=== PATIENT | female | born 1945 | race Caucasian/White ===

== ENCOUNTER 2017-10-22 08:34 | Inpatient (IN) | payer MEDICARE, BC ==
[~2017-10-22 08:34] MED LIST: ceFAZolin 2 GM in Premix Bag 1 BAG IV ONE
[2017-10-22] MEDS ORDERED: Lidocaine 2% 5 ML SDV ONE (08:50)
[2017-10-22] MEDS ORDERED: Propofol 200 MG/20 ML SDV ONE (08:50)
[2017-10-22] MEDS ORDERED: fentaNYL 250 MCG/5 ML SDV ONE (08:51)
[2017-10-22] MEDS ORDERED: Midazolam 1 MG/ML 2 ML SDV ONE (08:51)
[2017-10-22] MEDS ORDERED: Sugammadex Sodium 200 MG/2 ML VIAL ONE (08:52)
[2017-10-22] MEDS ORDERED: Rocuronium 10 MG/ML 10 ML Syringe ONE (08:52)
[2017-10-22] MEDS ORDERED: ePHEDrine 50 MG/ML SDV ONE ×2 (08:52→13:14)
[2017-10-22] MEDS ORDERED: Ondansetron 4 MG/2 ML SDV ONE (08:52)
[2017-10-22] MEDS ORDERED: ceFAZolin/Dextrose,Iso-Osmotic 2 GM/50 ML Duplex Bag IV ONE (08:58)
--- NOTE | 2017-10-22 09:24 | PCM.PREANE ---
Preanesthetic Assessment - Anesthesia/Transfusion/Family Hx Anesthesia History: Prior Anesthesia Without Reaction Family History of Anesthesia Reaction: No Transfusion History: No Prior Transfusion(s) Intubation History: Unknown - Review of Systems General: No Symptoms Pulmonary: No Symptoms Cardiovascular: No Symptoms Gastrointestinal: No Symptoms Neurological: No Symptoms Other: Reports: None - Physical Assessment Height: 1.6 m Weight: 72.575 kg ASA Class: 2 Mental Status: Alert & Oriented x3 Airway Class: Mallampati = 2 Dentition: Reports: Harper(s) (multiple crowns) Thyro-Mental Finger Breadths: 3 Mouth Opening Finger Breadths: 2 ROM/Head Extension: Full Lungs: Clear to Auscultation, Normal Respiratory Effort Cardiovascular: Regular Rate, Regular Rhythm - Allergies Allergies/Adverse Reactions: Allergies Allergy/AdvReac Type Severity Reaction Status Date / Time No Known Allergies Allergy Verified 10/20/17 12:17 - Blood Blood Available: No - Anesthesia Plan Pre-Op Medication Ordered: None - Acknowledgements Anesthesia Type Planned: Spinal (plus general anesthesia ) Pt an Appropriate Candidate for the Planned Anesthesia: Yes Alternatives and Risks of Anesthesia Discussed w Pt/Guardian: Yes Pt/Guardian Understands and Agrees with Anesthesia Plan: Yes PreAnesthesia Questionnaire HEENT History: Reports: Allergic Rhinitis Other HEENT History: wears glasses Cardiovascular History: Reports: Blood Clots/VTE/DVT, High Cholesterol (mildly elevated cholesterol), Hypertension Other Cardiovascular History: had DVT in left leg when on BCP's - took heparin Genitourinary History: Reports: Urinary Incontinence 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: Musculoskeletal History: Reports: Arthritis, Back Pain, Chronic, Fracture Other Musculoskeletal History: hx of fx left ankle Endocrine/Metabolic History: Reports: Hypothyroidism - Past Surgical History Head Surgeries/Procedures: Reports: None HEENT Surgical History: Reports: None GI Surgical History: Reports: Appendectomy, Colonoscopy Endocrine Surgical History: Reports: Thyroidectomy Musculoskeletal Surgical History: Reports: Knee Replacement (right) - SUBSTANCE USE Smoking Status *Q: Never Smoker Recreational Drug Use History: No - HOME MEDS Home Medications: Home Meds Aspirin 81 mg PO DAILY 01/27/15 [History] Levothyroxine 125 mcg PO DAILY 01/27/15 [History] Moexipril [Univasc] 15 mg PO DAILY 01/27/15 [History] Multivitamins 1 cap PO DAILY 01/27/15 [History] traMADol [Ultram] 50 mg PO Q4H PRN 10/20/17 [History] - CURRENT (IN HOUSE) MEDS Current Meds: Current Medications Lactated Ringer's (Ringers, Lactated) 1,000 mls @ 125 mls/hr IV ASDIRECTED JOSE Tranexamic Acid (Cyklokapron) 2,000 mg IV ONETIME ONE Stop: 10/22/17 10:01 Discontinued Medications Cefazolin Sodium/Dextrose (Ancef) Confirm Administered Dose 2 gm IV .STK-MED ONE Stop: 10/22/17 08:59 Ephedrine Sulfate (Ephedrine Sulfate) Confirm Administered Dose 50 mg .ROUTE .STK-MED ONE Stop: 10/22/17 08:53 Fentanyl (Sublimaze) Confirm Administered Dose 250 mcg .ROUTE .STK-MED ONE Stop: 10/22/17 08:52 Cefazolin Sodium/Dextrose 2 gm (/ Premix) 50 mls @ 50 mls/hr IV ONETIME ONE Stop: 10/22/17 08:05 Lidocaine (Xylocaine-Mpf 2%) Confirm Administered Dose 10 ml .ROUTE .STK-MED ONE Stop: 10/22/17 08:51 Midazolam HCl (Versed 1 Mg/Ml) Confirm Administered Dose 2 mg .ROUTE .STK-MED ONE Stop: 10/22/17 08:52 Ondansetron HCl (Zofran) Confirm Administered Dose 4 mg .ROUTE .STK-MED ONE Stop: 10/22/17 08:53 Propofol (Diprivan 20 Ml) Confirm Administered Dose 400 mg .ROUTE .STK-MED ONE Stop: 10/22/17 08:51 Rocuronium [place] (Zemuron) Confirm Administered Dose 100 mg .ROUTE .STK-MED ONE Stop: 10/22/17 08:53 Sugammadex Sodium (Bridion) Confirm Administered Dose 200 mg .ROUTE .STK-MED ONE Stop: 10/22/17 08:53 Tranexamic Acid (Cyklokapron) Confirm Administered Dose 2,000 mg .ROUTE .STK- MED ONE Stop: 10/22/17 07:25
[2017-10-22] MEDS: Lactated Ringers 1,000 ML IV SCH ×3 (09:45→21:50)
[2017-10-22] MEDS ORDERED: Dermabond Prineo 1 Tube TOP ONE (11:07)
[2017-10-22] MEDS ORDERED: Phenylephrine/Normal Saline 100 MCG/ML 10 ML Syringe ONE (11:18)
[2017-10-22] MEDS ORDERED: fentaNYL 100 MCG/2 ML SDV IVPUSH PRN (11:21)
--- NOTE | 2017-10-22 12:07 | PCM.OPNOTE ---
- General Post-Op/Procedure Note Date of Surgery/Procedure: 10/22/17 Operative Procedure(s): right anterior total hip arthroplasty Findings: severe OA Pre Op Diagnosis: right hip osteoarthritis Post-Op Diagnosis: same Anesthesia Technique: General ET Tube, Spinal Primary Surgeon: Jose G Saldivar Mai Project Reservoir Engineer: Patricia Awan Pathology: femoral head EBL in mLs: 400 Complications: none Condition: Good Free Text/Narrative:: Intake & Output 10/21/17 10/22/17 10/22/17 22:59 06:59 14:59 Intake Total 300 Balance 300
[2017-10-22] MEDS ORDERED: Ondansetron 4 MG/2 ML SDV IV PRN (12:19)
[2017-10-22] MEDS ORDERED: traMADol 50 MG Tab PO PRN (12:20)
[2017-10-22] MEDS: Acetaminophen/HYDROcodone 325-5 MG Tab PO PRN ×2 (13:52→20:17)
[2017-10-22] MEDS: HYDROmorphone 1 MG/ML Syringe IVPUSH PRN ×2 (14:00→17:07)
--- NOTE | 2017-10-22 16:08 | OR ---
SURGEON: Jose G Cooper MD DATE OF PROCEDURE: 10/22/2017 EQUIPMENT SPECIALIST: Patricia Awan PA-C. PREOPERATIVE DIAGNOSIS: Right hip osteoarthritis. POSTOPERATIVE DIAGNOSIS: Right hip osteoarthritis. OPERATION PERFORMED: Right anterior total hip arthroplasty. ANESTHESIA: Spinal and general. COMPLICATION: None. ESTIMATED BLOOD LOSS: 400 mL. SPECIMENS: Femoral head. IMPLANTS: Aquiles Continuum trabecular metal shell with cluster holes, 52 mm outer diameter, three 6.5 mm bone screws, 130 x 20; Vivacit-E neutral liner, 36 mm inner diameter. M/L taper press-fit stem, size 12.5 standard offset, Biolox delta ceramic head, 36 mm diameter, -3.5 neck length. INDICATIONS: The patient is a 72-year-old female with severe arthritis, she wished to undergo hip replacement. She understands the risks, benefits, complications of procedure including but not limited to infection, neurovascular injury, continued pain, DVT, PE, stroke, DC, , leg-length discrepancy, fracture, dislocation, and she wished to proceed. DESCRIPTION OF PROCEDURE: The patient was seen in the preoperative area. Operative site was marked. She was transferred to the operating room. Spinal anesthetic was given. She was placed supine on the Hernandez table. General anesthesia was induced. Endotracheal tube was placed. She received preop antibiotic, Ancef, and 2 g of TXA. The legs were placed in the leg bars with narrow perineal post. Right hip was prepped and draped in sterile fashion alcohol followed by ChloraPrep. A formal time-out was taken, identifying the correct patient, procedure, and extremity. A 10 cm incision starting just lateral to the ASIS going obliquely down to the femur was made. Dissection was carried down to subcu tissues. Hemostasis was obtained. The fascia overlying the TFL lateral to the lateral femoral cutaneous nerve and the interval between sartorius and TFL, deep between abductors and rectus was opened. The vastus lateralis fascia was opened, then anterior vessels were coagulated. The capsule was held and tagged with two FiberWires after placing deep Ramakrishna retractor. The neck was cut from saddle region 1 cm above the lesser trochanter and the head was removed. There was severe arthritis and remnants of the labrum. Pulvinars were removed and the inferior capsule was released preserving the iliopsoas tendon. The head measured about 47 sequentially reamed from 47 to 51 mm was made going slightly superior medial to get good fit and fill. This was under fluoroscopic control. The bed was planed to make sure it was level under fluoroscopic control. Then, continuum trabecular metal shell with cluster holes was placed in 45 degrees of abduction, 10 degrees of anteversion, this had decent press fit. Therefore, three bone screws were placed after drilling 130 x 20. Wound was then irrigated out and neutral liner was impacted. Leg was then externally rotated, abducted, and extended after placing the femoral lift. The superior capsule, obturator internus, and piriformis were released and the central canal finer was utilized, it was sequentially broached following the [place] version from size 4 to 12.5. There was an excellent fit and fill. The hip was trial reduced with a standard offset with zero neck length. Printed overlay technique showed leg lengths to be essentially equal, maybe 1 to 2 mm increased offset head. The hip was then dislocated. The final 12.5 standard offset stem was impacted. It sat slightly proud, therefore -3.5 head was impacted, it was reduced in the printed overlay technique, showed maybe 1 to 2 mm long with equal offset. The wound was then thoroughly irrigated. Two tag sutures were tied together. The fascia was closed with #1 Vicryl. Subcu tissues with 2-0 StrataFix. Skin with running 4-0 Monocryl. Dermabond tape and sterile dressing were applied. The patient was extubated in operating room and transferred to recovery room in stable condition. Sponge and needle counts were correct at the end of the case. There were no complications. Take aspirin for DVT prophylaxis. DIANA HEMPHILL /[id number]
--- NOTE | 2017-10-22 16:21 | CR ---
EXAMINATION: Right hip HISTORY: Arthroplasty COMPARISON: Radiographs dated 10/20/2017 TECHNIQUE: 3 images provided FINDINGS/IMPRESSION: Operative control films demonstrate right total hip hardware in good position an d alignment.
[2017-10-22] MEDS: ceFAZolin 1 GM in Premix Bag 1 BAG IV SCH (18:03)
[2017-10-22] MEDS: Docusate Sodium 100 MG Cap PO SCH (20:19)
[2017-10-23] MEDS: HYDROmorphone 1 MG/ML Syringe IVPUSH PRN ×2 (00:48→06:14)
[2017-10-23] MEDS: ceFAZolin 1 GM in Premix Bag 1 BAG IV SCH (02:29)
[2017-10-23] MEDS: Acetaminophen/HYDROcodone 325-5 MG Tab PO PRN ×3 (02:32→20:07)
[2017-10-23] MEDS: Lactated Ringers 1,000 ML IV SCH (06:21)
[2017-10-23] MEDS: Levothyroxine 125 MCG Tab PO SCH (06:37)
[2017-10-23] MEDS ORDERED: Sodium Chloride 0.9% 2.5 ML Syringe FLUSH PRN (06:53)
[2017-10-23] MEDS ORDERED: Sodium Chloride 0.9% 10 ML Syringe FLUSH PRN (06:53)
--- NOTE | 2017-10-23 06:55 | PCM.SN ---
- Free Text/Narrative Note: Subjective: Patient is overall doing very well she complains of itchiness in the low back and bilateral thigh knee leg pain. Overall the hip is doing well. She is tolerating by mouth well. She has been out of bed to chair several times. She has not worked with therapy yet. No other complaints. Objective: Afebrile, vital signs stable Right hip reveals dressing to be clean/dry/intact with no signs of erythema or drainage. She has minimal if any swelling in the thigh and none distally. She has normal sensation and motor distally with palpable dorsalis pedis pulse Hemoglobin 12.7 Assessment/plan: Postoperative day #1 right hip replacement - Weight bearing as tolerated with physical therapy and walker - Ecotrin and SCDs for DVT prophylaxis - DC Tate and saline lock IV today - Disposition to home when able. This may be today.
--- NOTE | 2017-10-23 07:02 | PCM48HPAN ---
Post Anesthesia Note - EVALUATION WITHIN 48HRS OF ANESTHETIC Vital Signs in Normal Range: Yes Patient Participated in Evaluation: Yes Respiratory Function Stable: Yes Airway Patent: Yes Cardiovascular Function Stable: Yes Hydration Status Stable: Yes Pain Control Satisfactory: Yes Nausea and Vomiting Control Satisfactory: Yes Mental Status Recovered: Yes Resp Rate: 19
[2017-10-23] MEDS: Docusate Sodium 100 MG Cap PO SCH ×2 (08:45→20:08)
[2017-10-23] MEDS: Multivitamins with Iron/Calcium/Folic Acid/Minerals Tab PO SCH (08:46)
[2017-10-23] MEDS: Celecoxib 100 MG Cap PO SCH (08:46)
[2017-10-23] MEDS: Aspirin 325 MG Tab.EC PO SCH ×2 (08:49→20:07)
[2017-10-24] MEDS: Levothyroxine 125 MCG Tab PO SCH (06:45)
--- NOTE | 2017-10-24 06:54 | PCM.SN ---
- Free Text/Narrative Note: Subjective: Patient is overall doing well. She is ambulating. Her pain is better controlled and she is tolerating by mouth. Overall her legs feel stiff. Objective: Afebrile, vital signs stable Dressing clean/dry/intact on right thigh. Mild swelling and thigh but none distally. There is no erythema or signs of infection. Full sensation and motor distally with palpable pulses Hemoglobin 11.9 Assessment/plan: Postoperative day #2 right hip replacement - Weight bearing as tolerated with physical therapy - Ecotrin SCDs for DVT prophylaxis - Her hemoglobin is stable - To home today with walker
--- NOTE | 2017-10-24 06:55 | PCM.DCSUM1 ---
Discharge Summary - Hospital Course Brief History: Patient is admitted for elective right hip replacement Diagnosis: Stroke: No - Discharge Data Discharge Date: 10/24/17 Discharge Disposition: Home, Self-Care 01 Condition: Good - Patient Summary/Data Operative Procedure(s) Performed: right anterior total hip arthroplasty Consults: Consultations 10/22/17 12:18 PT Evaluation and Treatment [CONS] Routine Hospital Course: Patient was admitted and underwent uneventful total hip arthroplasty. Postoperatively she was admitted for her pain was controlled and her diet was advanced and she participated in physical therapy with weightbearing as tolerated. She did well postoperatively and was subsequently discharged home on postoperative day #2 - Patient Instructions Diet: Usual Diet as Tolerated Activity: Apply Ice, Full Weight Bearing Driving: Do Not Drive Showering/Bathing: August Shower Wound/Incision Care: Do NOT Change Dressing Notify Provider of: Fever, Swelling and Redness, Drainage - Discharge Plan Home Medications: Home Meds Aspirin 81 mg PO DAILY 01/27/15 [History] Levothyroxine 125 mcg PO DAILY 01/27/15 [History] Moexipril [Univasc] 15 mg PO DAILY 01/27/15 [History] Multivitamins 1 cap PO DAILY 01/27/15 [History] traMADol [Ultram] 50 mg PO Q4H PRN 10/20/17 [History] Patient Handouts: Acetaminophen; Hydrocodone tablets or capsules, Aspirin, ASA oral tablets Referrals: Patricia Awan PA [[facility]] - 11/05/17 3:20 pm - Discharge Summary/Plan Comment DC Time >30 min.: No - Patient Data Vitals - Most Recent: Last Vital Signs Temp 36.9 C 10/24/17 04:00 Pulse 94 10/24/17 04:00 Resp 18 10/24/17 04:00 BP 105/60 10/24/17 04:00 Pulse Ox 97 10/24/17 04:00 Weight - Most Recent: 72.575 kg I&O - Last 24 hours: Intake & Output 10/23/17 10/23/17 10/24/17 14:59 22:59 06:59 Intake Total 300 Output Total 1250 Balance -950 Lab Results - Last 24 hrs: Laboratory Results - last 24 hr 10/24/17 Range/Units 04:36 Hgb 11.9 L (12.0-16.0) g/dL Hct 36.1 (36.0-46.0) % Med Orders - Current: Current Medications Hydrocodone Bitart/Acetaminophen (Keller 325-5 Mg) 1 - 2 tab PO Q4H PRN PRN Reason: Pain Last Admin: 10/23/17 20:07 Dose: 2 tab Aspirin (Ecotrin) 325 mg PO BID [facility] Last Admin: 10/23/17 20:07 Dose: 325 mg Celecoxib (Celebrex) 200 mg PO DAILY [facility] Last Admin: 10/23/17 08:46 Dose: 200 mg Docusate Sodium (Colace) 100 mg PO BID [facility] Last Admin: 10/23/17 20:08 Dose: 100 mg Hydromorphone HCl (Dilaudid) 0.5 - 1 mg IVPUSH Q3H PRN PRN Reason: Pain Last Admin: 10/23/17 06:14 Dose: 1 mg Lactated Ringer's (Ringers, Lactated) 1,000 mls @ 125 mls/hr IV ASDIRECTED [facility] Last Admin: 10/23/17 06:21 Dose: 125 mls/hr Levothyroxine Sodium (Levothyroxine) 125 mcg PO ACBREAKFAST [facility] Last Admin: 10/24/17 06:45 Dose: 125 mcg Moexipril HCl (Univasc) 15 mg PO DAILY [facility] Last Admin: 10/23/17 08:46 Dose: 15 mg Multivitamins/Minerals (Thera M Plus) 1 tab PO DAILY [facility] Last Admin: 10/23/17 08:46 Dose: 1 tab Ondansetron HCl (Zofran) 4 mg IV Q6HR PRN PRN Reason: NAUSEA/VOMITING Sodium Chloride (Saline Flush) 10 ml FLUSH ASDIRECTED PRN PRN Reason: Keep Vein Open Sodium Chloride (Saline Flush) 2.5 ml FLUSH ASDIRECTED PRN PRN Reason: Keep Vein Open Tramadol HCl (Ultram) 50 - 100 mg PO Q6H PRN PRN Reason: Pain Discontinued Medications Cefazolin Sodium/Dextrose (Ancef) Confirm Administered Dose 2 gm IV .STK-MED ONE Stop: 10/22/17 08:59 Ephedrine Sulfate (Ephedrine Sulfate) Confirm Administered Dose 50 mg .ROUTE .STK-MED ONE Stop: 10/22/17 08:53 Ephedrine Sulfate (Ephedrine Sulfate) Confirm Administered Dose 50 mg .ROUTE .STK-MED ONE Stop: 10/22/17 13:15 Fentanyl (Sublimaze) Confirm Administered Dose 250 mcg .ROUTE .STK-MED ONE Stop: 10/22/17 08:52 Fentanyl (Sublimaze) 50 mcg IVPUSH Q5M PRN PRN Reason: Pain (severe 7-10) Stop: 10/23/17 11:21 Cefazolin Sodium/Dextrose 2 gm (/ Premix) 50 mls @ 50 mls/hr IV ONETIME ONE Stop: 10/22/17 08:05 Last Admin: 10/22/17 16:36 Dose: Not Given Cefazolin Sodium/Dextrose 1 gm (/ Premix) 50 mls @ 100 mls/hr IV Q8H JOSE Stop: 10/23/17 02:59 Last Admin: 10/23/17 02:29 Dose: 100 mls/hr Lidocaine (Xylocaine-Mpf 2%) Confirm Administered Dose 10 ml .ROUTE .STK-MED ONE Stop: 10/22/17 08:51 Midazolam HCl (Versed 1 Mg/Ml) Confirm Administered Dose 2 mg .ROUTE .STK-MED ONE Stop: 10/22/17 08:52 Octyl Cyanoacrylate (Dermabond Prineo) 1 applic TOP .STK-MED ONE Stop: 10/22/17 11:08 Ondansetron HCl (Zofran) Confirm Administered Dose 4 mg .ROUTE .STK-MED ONE Stop: 10/22/17 08:53 Phenylephrine HCl (Phenylephrine In Ns 100 Mcg/Ml) Confirm Administered Dose 1 mg .ROUTE .STK-MED ONE Stop: 10/22/17 11:19 Propofol (Diprivan 20 Ml) Confirm Administered Dose 400 mg .ROUTE .STK-MED ONE Stop: 10/22/17 08:51 Rocuronium [place] (Zemuron) Confirm Administered Dose 100 mg .ROUTE .STK-MED ONE Stop: 10/22/17 08:53 Sugammadex Sodium (Bridion) Confirm Administered Dose 200 mg .ROUTE .STK-MED ONE Stop: 10/22/17 08:53 Tranexamic Acid (Cyklokapron) 2,000 mg IV ONETIME ONE Stop: 10/22/17 10:01 Last Admin: 10/22/17 17:55 Dose: Not Given Tranexamic Acid (Cyklokapron) Confirm Administered Dose 2,000 mg .ROUTE .[facility] ONE Stop: 10/22/17 07:25
[2017-10-24] MEDS: Multivitamins with Iron/Calcium/Folic Acid/Minerals Tab PO SCH (09:13)
[2017-10-24] MEDS: Docusate Sodium 100 MG Cap PO SCH (09:13)
[2017-10-24] MEDS: Celecoxib 100 MG Cap PO SCH (09:14)
[2017-10-24] MEDS: Aspirin 325 MG Tab.EC PO SCH (09:14)
[2017-10-24 11:50] VITALS: BP 101/59
[2017-10-24] MEDS: Acetaminophen/HYDROcodone 325-5 MG Tab PO PRN (15:24)
== END 2017-10-24 14:30 | disposition home or self-care (01) | DRG 470 ==
LOC: MW.MS 08:34
PROVIDERS: ADMIT Orthopaedic Surgery; ATTEND Orthopaedic Surgery
PROC: 0SR90JA Replacement of Right Hip Joint with Synthetic Substitute, Uncemented, Open Approach (ICD-10-PCS; principal; 2017-10-22)
DX: M16.11 Unilateral primary osteoarthritis, right hip (principal); I10 Essential (primary) hypertension; E03.9 Hypothyroidism, unspecified; E78.00 Pure hypercholesterolemia, unspecified; Z86.718 Personal history of other venous thrombosis and embolism; Z96.651 Presence of right artificial knee joint; Z79.899 Other long term (current) drug therapy; Z91.81 History of falling; Z79.82 Long term (current) use of aspirin
CPT/HCPCS: 36415; 76000; 76000-26; 85014; 85018; 86850; 86900; 86901; 88304; 88311; 97110-GP; 97161-GP; 97530-GP; A9270-GY; C1713; C1776; J0690; J1170; J2250; J2405; J2704; J3010; J3490; J7120

== ENCOUNTER 2018-07-20 10:07 | Day surgery (SDC) | payer MEDICARE, BC ==
[~2018-07-20 10:07] MED LIST changes: +Lactated Ringers 1,000 ML IV SCH; -ceFAZolin 2 GM in Premix Bag 1 BAG IV ONE
--- NOTE | 2018-07-20 11:23 | PCM.PREANE ---
Preanesthetic Assessment - Anesthesia/Transfusion/Family Hx Anesthesia History: Prior Anesthesia Without Reaction Family History of Anesthesia Reaction: No Transfusion History: No Prior Transfusion(s) Intubation History: Unknown - Review of Systems General: No Symptoms Pulmonary: No Symptoms Cardiovascular: No Symptoms Gastrointestinal: Abdominal Pain, Constipation, Diarrhea, Hematochezia Neurological: No Symptoms Other: Reports: None - Physical Assessment Height: 1.6 m Weight: 75.75 kg ASA Class: 3 Mental Status: Alert & Oriented x3 Airway Class: Mallampati = 2 Dentition: Reports: [place](s) (multiole upper front) Thyro-Mental Finger Breadths: 3 Mouth Opening Finger Breadths: 2 ROM/Head Extension: Limited/Partial Lungs: Clear to Auscultation, Normal Respiratory Effort Cardiovascular: Regular Rate, Regular Rhythm - Allergies Allergies/Adverse Reactions: Allergies Allergy/AdvReac Type Severity Reaction Status Date / Time No Known Allergies Allergy Verified 07/15/18 07:31 - Blood Blood Available: No - Anesthesia Plan Pre-Op Medication Ordered: None - Acknowledgements Anesthesia Type Planned: MAC Pt an Appropriate Candidate for the Planned Anesthesia: Yes Alternatives and Risks of Anesthesia Discussed w Pt/Guardian: Yes Pt/Guardian Understands and Agrees with Anesthesia Plan: Yes PreAnesthesia Questionnaire HEENT History: Reports: Allergic Rhinitis, Other (See Below) Other HEENT History: wears glasses Cardiovascular History: Reports: Blood Clots/VTE/DVT, High Cholesterol (mildly elevated), Hypertension Other Cardiovascular History: had DVT in left leg when on BCP's and when with son, states left leg remains slightly swollen and wears compression socks Respiratory History: Reports: None Gastrointestinal History: Reports: Chronic Diarrhea Genitourinary History: Reports: None 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: Musculoskeletal History: Reports: Arthritis, Back Pain, Chronic, Fracture Other Musculoskeletal History: hx of fx left ankle Neurological History: Reports: None Psychiatric History: Reports: None Endocrine/Metabolic History: Reports: Hypothyroidism Hematologic History: Reports: None Immunologic History: Reports: None Oncologic (Cancer) History: Reports: None Dermatologic History: Reports: None - Past Surgical History Head Surgeries/Procedures: Reports: None HEENT Surgical History: Reports: None Respiratory Surgical History: Reports: None GI Surgical History: Reports: Appendectomy, Colonoscopy (long time ago, like 20 years ago) Female Surgical History: Reports: None Endocrine Surgical History: Reports: Thyroidectomy Neurological Surgical History: Reports: None Musculoskeletal Surgical History: Reports: Hip Replacement (right), Knee Replacement (right) Other Musculoskeletal Surgeries/Procedures:: right knee replacement, rt hip replacement Oncologic Surgical History: Reports: None Dermatological Surgical History: Reports: None - SUBSTANCE USE Smoking Status *Q: Never Smoker Recreational Drug Use History: No - HOME MEDS Home Medications: Home Meds Aspirin 81 mg PO DAILY 01/27/15 [History] Levothyroxine 125 mcg PO DAILY 01/27/15 [History] Moexipril [Univasc] 15 mg PO DAILY 01/27/15 [History] Acetaminophen [Tylenol] 1 - 2 tab PO ASDIRECTED PRN 07/15/18 [History] Ciprofloxacin [Ciprofloxacin HCl] 500 mg PO BID 07/15/18 [History] Multivits-Min/Iron/FA/Lutein [Centrum Silver Women Tablet] 1 tab PO DAILY [History] metroNIDAZOLE 250 mg PO TID 07/15/18 [History] - CURRENT (IN HOUSE) MEDS Current Meds: Current Medications Lactated Ringer's (Ringers, Lactated) 1,000 mls @ 125 mls/hr IV ASDIRECTED JOSE
[2018-07-20] MEDS ORDERED: Midazolam 1 MG/ML 2 ML SDV ONE (12:40)
[2018-07-20] MEDS ORDERED: Lidocaine 2% 5 ML SDV ONE (12:40)
[2018-07-20] MEDS ORDERED: fentaNYL 100 MCG/2 ML SDV ONE (12:40)
[2018-07-20] MEDS ORDERED: Propofol 200 MG/20 ML SDV ONE ×4 (12:41→13:34)
[2018-07-20] MEDS ORDERED: cefOXitin 1 GM Vial ONE ×2 (13:03)
[2018-07-20] MEDS ORDERED: Phenylephrine/Normal Saline 100 MCG/ML 10 ML Syringe ONE (13:29)
--- NOTE | 2018-07-20 13:53 | PCM.OPNOTE ---
- General Post-Op/Procedure Note Date of Surgery/Procedure: 07/20/18 Operative Procedure(s): Colonoscopy with cecal, ascending colon, transverse colon, descending colon, sigmoid and rectal biopsies. Findings: Complete denuding of the entire colonic mucosa Pre Op Diagnosis: Rectal bleeding, change in bowel habits, decreased stool caliber, unexplained weight loss. Post-Op Diagnosis: Severe acute white colonic colitis. Anesthesia Technique: MAC (ASA III) Primary Surgeon: Cody Birmingham Condition: Good Free Text/Narrative:: DICTATION [id number] CPT CODE 43355
[2018-07-20] MEDS ORDERED: Lactated Ringers 1,000 ML IV SCH (14:00)
--- NOTE | 2018-07-20 14:16 | PCM.POSTAN ---
POST ANESTHESIA ASSESSMENT - MENTAL STATUS Mental Status: Alert, Oriented - VITAL SIGNS Pulse Rate: 90 SaO2: 96 Resp Rate: 10 Blood Pressure: 100/53 - RESPIRATORY Respiratory Status: Respiratory Rate WNL, Airway Patent, O2 Saturation Stable - CARDIOVASCULAR CV Status: Pulse Rate WNL, Blood Pressure Stable - GASTROINTESTINAL GI Status: No Symptoms - PAIN Pain Score: 0 - POST OP HYDRATION Hydration Status: Adequate & Stable
[2018-07-20 14:58] VITALS: BP 100/53
--- NOTE | 2018-07-20 14:58 | PCM48HPAN ---
Post Anesthesia Note - EVALUATION WITHIN 48HRS OF ANESTHETIC Vital Signs in Normal Range: Yes Patient Participated in Evaluation: Yes Respiratory Function Stable: Yes Airway Patent: Yes Cardiovascular Function Stable: Yes Hydration Status Stable: Yes Pain Control Satisfactory: Yes Nausea and Vomiting Control Satisfactory: Yes Mental Status Recovered: Yes Pulse Rate: 90 Resp Rate: 16 Blood Pressure: 100/53 - COMMENTS/OBSERVATIONS Free Text/Narrative:: no anesthesia problems
--- NOTE | 2018-07-20 20:22 | OR ---
SURGEON: Cody Birmingham M.D. DATE OF PROCEDURE: 07/20/2018 OPERATIONS PERFORMED: Colonoscopy with biopsies from the cecum, ascending colon, transverse colon, descending colon, sigmoid colon, and rectum. PRIMARY SURGEON: Cody Birmingham M.D. ANESTHESIA: MAC. ASA CLASSIFICATION: III. PREOPERATIVE DIAGNOSIS: Rectal bleeding with change in bowel habits, decreased stool caliber and weight loss. POSTOPERATIVE DIAGNOSIS: Severe pancolonic diffuse colitis. DESCRIPTION OF PROCEDURE: The patient was taken to the endoscopy room and positioned on the endoscopy table in the left lateral decubitus position. Time-out was called for appropriate identification of the patient and procedure. Monitored anesthesia care was provided. The colonoscope was inserted into the rectum and immediately she was noted to have a very acute colitis with almost complete denudation of the colonic mucosa. This pattern continued all the way to the cecum. The colonoscope was advanced very carefully and gingerly to the cecum, which was identified by internal landmarks and external pressure. The appendiceal orifice was identified. The cecum itself shows a very severe acute inflammatory process with essentially no normal appearing colonic mucosa. The initial set of biopsies was taken from the cecum. The colonoscope was retroflexed in the cecum to visualize the ascending colon from below and then straightened and slowly withdrawn. More biopsies were taken from the ascending colon. The colonoscope was slowly withdrawn and biopsies further obtained from the transverse colon, descending colon, sigmoid colon, and rectum. Essentially, there was complete denuding of the colonic mucosa through the entire length of the colon. I did not see any polyps and there were no tumors or strictures. Once the colonoscope was withdrawn to the rectum and the rectum biopsied, the colonoscope was retroflexed to visualize the anal orifice from above. No acute hemorrhoidal changes are noted, but again is noted is very aggressive appearing colitis. The colonoscope was then straightened, the rectum aspirated, and the colonoscope removed. The patient did tolerate the procedure well and was taken to recovery room in stable condition. KIN / JOBY /[id number]
== END 2018-07-20 15:00 | disposition home or self-care (01) ==
LOC: MW.SDS 10:07
PROVIDERS: ATTEND Surgery
DX: K52.9 Noninfective gastroenteritis and colitis, unspecified (principal); I10 Essential (primary) hypertension; E78.00 Pure hypercholesterolemia, unspecified; E03.9 Hypothyroidism, unspecified; Z79.82 Long term (current) use of aspirin; Z79.899 Other long term (current) drug therapy; Z79.890 Hormone replacement therapy
CPT/HCPCS: 45380; 88305; J0694; J2001; J2250; J2370; J2704; J3010; J7120; 00811

== ENCOUNTER 2019-02-03 23:20 | Emergency (ER) | payer MEDICARE, BC ==
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
[2019-02-03] MEDS ORDERED: traMADol 50 MG Tab PO ONE (23:36)
--- NOTE | 2019-02-03 23:51 | CR ---
INDICATION: Injury to chest wall TECHNIQUE: Chest radiograph 2 views COMPARISON: 09/30/17 FINDINGS: Mediastinum: The mediastinum is normal in appearance. The heart silhouette is normal in size and morphology. Lung: Both lungs are unremarkable in appearance. No sign of pleural effusion seen. No pneumothorax is identified. Bone and Soft tissue: Unremarkable for age. IMPRESSION: 1. No acute cardiopulmonary disease is seen. Dictated by: Blade Tong MD @ 02/03/2019 23:49:56 (Electronically Signed)
[2019-02-04 00:09] VITALS: BP 149/76; PULSE 68
== END 2019-02-04 00:08 | disposition home or self-care (01) ==
LOC: MW.ED 23:20
DX: R07.89 Other chest pain (principal); I10 Essential (primary) hypertension; E03.9 Hypothyroidism, unspecified; E78.00 Pure hypercholesterolemia, unspecified; Z79.82 Long term (current) use of aspirin; Z79.899 Other long term (current) drug therapy; Z86.718 Personal history of other venous thrombosis and embolism
CPT/HCPCS: 71046; 93005; 99285; A9270

== ENCOUNTER 2021-07-20 22:50 | Observation (INO) | payer MEDICARE, OTHER ==
[2021-07-21] MEDS ORDERED: Morphine 4 MG/ML VIAL IVPUSH ONE ×2 (00:13→02:37)
[2021-07-21] MEDS ORDERED: Sodium Chloride 0.9% 500 ML IV SCH (00:15)
[2021-07-21] MEDS ORDERED: Iopamidol 755 MG/ML 500 ML Multipack Bottle IVPUSH ONE (01:10)
[2021-07-21 01:12] LABS: BLOOD UREA NITROGEN,BUN 17 mg/dL (7.0-18.0); CARBON DIOXIDE,CO2 26.9 mmol/L (21.0-32.0); CHLORIDE,CL 104 mmol/L (98-107); GLUCOSE RANDOM 137 mg/dL (74-106); LIPASE 218 U/L (73-393); SODIUM,NA 141 mmol/L (136-145)
[2021-07-21] MEDS ORDERED: Morphine 4 MG/ML VIAL IVPUSH PRN (02:41)
[2021-07-21] MEDS ORDERED: Lactated Ringers 1,000 ML IV STA (02:43)
[2021-07-21] MEDS ORDERED: Morphine 2 MG/ML SYRINGE IVPUSH PRN (09:47)
[2021-07-21 16:01] VITALS: BP 138/82; PULSE 83
== END 2021-07-21 14:50 | disposition home or self-care (01) ==
LOC: MW.ED 22:50 → MW.MS 07-21 02:38
PROVIDERS: ADMIT Surgery; ATTEND Surgery
DX: K43.0 Incisional hernia with obstruction, without gangrene (principal); K40.90 Unilateral inguinal hernia, without obstruction or gangrene, not specified as recurrent; K56.609 Unspecified intestinal obstruction, unspecified as to partial versus complete obstruction; E78.00 Pure hypercholesterolemia, unspecified; I10 Essential (primary) hypertension; E03.9 Hypothyroidism, unspecified; Z86.718 Personal history of other venous thrombosis and embolism; Z79.890 Hormone replacement therapy; Z79.82 Long term (current) use of aspirin; Z79.899 Other long term (current) drug therapy; Z20.822 Contact with and (suspected) exposure to COVID-19
CPT/HCPCS: 36415; 74177; 80053; 81003; 83605; 83690; 85025; 96374; 96376; 99285; G0378; J2270; J7040; J7120; Q9967; U0002

== ENCOUNTER 2023-01-12 05:11 | Emergency (ER) | payer MEDICARE, OTHER ==
[2023-01-12] MEDS ORDERED: Sodium Chloride 0.9% 10 ML Syringe FLUSH PRN (05:19)
[2023-01-12] MEDS ORDERED: Sodium Chloride 0.9% 2.5 ML Syringe FLUSH PRN (05:19)
[2023-01-12] MEDS ORDERED: Morphine 4 MG/ML Syringe IVPUSH ONE ×3 (05:21→08:47)
[2023-01-12] MEDS ORDERED: Diphtheria,Pertussis(Acell),Tetanus Vaccine 0.5 ML Syringe IM ONE (05:21)
[2023-01-12 05:36] LABS: BASOPHILS PERCENT AUTO 0.3 % (0.0-1.5); EOSINOPHILS ABSOLUTE AUTO 0.4 K/uL (0.0-0.7); EOSINOPHILS PERCENT AUTO 2.6 % (0.0-7.0); HEMATOCRIT 40.3 % (36.0-46.0); HEMOGLOBIN 13.2 g/dL (12.0-16.0); LYMPHOCYTES ABSOLUTE AUTO 2.2 K/uL (0.6-2.4); LYMPHOCYTES PERCENT AUTO 15.5 % (16.0-40.0); MEAN CORPUSCULAR HEMOGLOBIN 31.2 pg (27.0-32.0); MEAN CORPUSCULAR HGB CONC 32.8 g/dL (31.0-37.0); MEAN CORPUSCULAR VOLUME 95.3 fL (80.0-98.0); MONOCYTES ABSOLUTE AUTO 1.3 K/uL (0.0-0.8); MONOCYTES PERCENT AUTO 9.6 % (0.0-15.0); NRBC ABSOLUTE 0 K/uL; PLATELET COUNT,PLT 251 K/uL (150-400); RED BLOOD CELL COUNT 4.23 M/uL (4.30-5.90); WHITE BLOOD CELL COUNT,WBC 13.86 K/uL (4.0-11.0)
[2023-01-12 05:43] LABS: INR 1.12 (0.86-1.11)
[2023-01-12 05:54] LABS: A/G RATIO 1.1 (0.9-1.6); ALANINE AMINOTRANSFERASE,ALT 18 IU/L (14-63); ALBUMIN 3.6 g/dL (3.4-5.0); ALKALINE PHOSPHATASE 67 U/L (46-116); ASPARTATE AMNIOTRANSFERASE,AST 25 IU/L (15-37); BILIRUBIN TOTAL 0.3 mg/dL (0.2-1.0); BLOOD UREA NITROGEN,BUN 33 mg/dL (7.0-18.0); CALCIUM 9.2 mg/dL (8.5-10.1); CARBON DIOXIDE,CO2 25.1 mmol/L (21.0-32.0); CHLORIDE,CL 103 mmol/L (98-107); CREATINE KINASE,CK 79 U/L (26-308); ETHANOL BLOOD MEDICAL <3 mg/dL; GLUCOSE RANDOM 173 mg/dL (74-106); LIPASE 100 U/L (16-77); POTASSIUM,K 4.1 mmol/L (3.5-5.1); SODIUM,NA 136 mmol/L (136-145)
[2023-01-12 05:55] LABS: ESTIMATED GFR 58 mL/min (>60)
[2023-01-12 06:44] LABS: LACTIC ACID 1.7 mmol/L (0.4-2.0)
[2023-01-12] MEDS ORDERED: Sodium Chloride 0.9% 500 ML IV SCH (06:45)
[2023-01-12] MEDS ORDERED: Naloxone 0.4 MG/ML SDV IVPUSH PRN (08:47)
[2023-01-12 09:21] LABS: APPEARANCE,URINE CLEAR; BILIRUBIN,URINE NEGATIVE (NEGATIVE); COLOR,URINE YELLOW; GLUCOSE,URINE NEGATIVE (NEGATIVE); KETONES,URINE NEGATIVE (NEGATIVE); LEUKOCYTE ESTERASE,URINE NEGATIVE (NEGATIVE); NITRITE,URINE NEGATIVE (NEGATIVE); OCCULT BLOOD,URINE NEGATIVE (NEGATIVE); PH,URINE 5.5 (5.0-8.0); PROTEIN,URINE NEGATIVE (NEGATIVE); UROBILINOGEN,URINE 0.2 EU/dL (<2.0)
[2023-01-12 09:41] VITALS: BP 149/65; PULSE 66
== END 2023-01-12 11:41 ==
LOC: MW.ED 05:11
DX: M97.11XA Periprosthetic fracture around internal prosthetic right knee joint, initial encounter (principal); I10 Essential (primary) hypertension; E03.9 Hypothyroidism, unspecified; E78.00 Pure hypercholesterolemia, unspecified; Z20.822 Contact with and (suspected) exposure to COVID-19; Z79.01 Long term (current) use of anticoagulants; Z79.82 Long term (current) use of aspirin; Z79.899 Other long term (current) drug therapy; W18.30XA Fall on same level, unspecified, initial encounter; Y92.009 Unspecified place in unspecified non-institutional (private) residence as the place of occurrence of the external cause
CPT/HCPCS: 36415; 51702; 70450; 71045; 72125; 73502; 73560; 73590; 80053; 80307; 81003; 82550; 82947; 83605; 83690; 84484; 85025; 85610; 90471; 90715; 93005; 96361; 96374; 96376; 99285; J2270; J3490; J7040; U0002; 73562-26-RT; 73562-RT; 93010

== ENCOUNTER 2024-07-23 16:09 | Emergency (ER) | payer MEDICARE, OTHER ==
[2024-07-23 16:39] LABS: BASOPHILS ABSOLUTE AUTO 0.06 K/uL (0.00-0.20); BASOPHILS PERCENT AUTO 1.1 % (0.0-1.0); EOSINOPHILS ABSOLUTE AUTO 0.25 K/uL (0.00-0.45); EOSINOPHILS PERCENT AUTO 4.5 % (0.0-6.0); HEMATOCRIT 43.3 % (37.0-47.0); HEMOGLOBIN 14.4 g/dL (12.0-16.0); IMMATURE GRAN ABSOLUTE AUTO 0.03 K/uL (0.00-0.05); IMMATURE GRAN PERCENT AUTO 0.5 % (0.0-0.4); LYMPHOCYTES ABSOLUTE AUTO 1.71 K/uL (1.00-4.80); MEAN CORPUSCULAR HEMOGLOBIN 31.1 pg (28.0-32.0); MEAN CORPUSCULAR HGB CONC 33.3 g/dL (32.0-36.0); MEAN CORPUSCULAR VOLUME 93.5 fL (83.0-99.0); MEAN PLATELET VOLUME 8.3 fL (9.4-12.3); MONOCYTES ABSOLUTE AUTO 0.57 K/uL (0.00-0.80); MONOCYTES PERCENT AUTO 10.3 % (0.0-8.0); NEUTROPHILS PERCENT AUTO 52.6 % (41.0-71.0); PLATELET COUNT,PLT 239 K/uL (150-400); RED BLOOD CELL COUNT 4.63 M/uL (4.10-5.30); WHITE BLOOD CELL COUNT,WBC 5.52 K/uL (3.9-11.3)
[2024-07-23 17:11] LABS: A/G RATIO 1.1 (0.9-1.6); ALANINE AMINOTRANSFERASE,ALT 16 IU/L (14-63); ALBUMIN 3.6 g/dL (3.4-5.0); ALKALINE PHOSPHATASE 78 U/L (46-116); ASPARTATE AMNIOTRANSFERASE,AST 18 IU/L (15-37); BILIRUBIN TOTAL 0.4 mg/dL (0.2-1.0); BLOOD UREA NITROGEN,BUN 13 mg/dL (7.0-18.0); CALCIUM 9.6 mg/dL (8.5-10.1); CHLORIDE,CL 105 mmol/L (98-107); CREATININE 0.8 mg/dL (0.6-1.0); GLUCOSE RANDOM 100 mg/dL (74-106); LIPASE 95 U/L (16-77); MAGNESIUM 2.1 mg/dL (1.8-2.4); POTASSIUM,K 3.9 mmol/L (3.5-5.1); SODIUM,NA 142 mmol/L (136-145)
[2024-07-23 17:13] LABS: APPEARANCE,URINE CLEAR; BILIRUBIN,URINE NEGATIVE (NEGATIVE); COLOR,URINE YELLOW; GLUCOSE,URINE NEGATIVE (NEGATIVE); KETONES,URINE NEGATIVE (NEGATIVE); LEUKOCYTE ESTERASE,URINE NEGATIVE (NEGATIVE); NITRITE,URINE NEGATIVE (NEGATIVE); OCCULT BLOOD,URINE NEGATIVE (NEGATIVE); PROTEIN,URINE NEGATIVE (NEGATIVE); UROBILINOGEN,URINE 0.2 EU/dL (<2.0)
[2024-07-23 17:17] LABS: ESTIMATED GFR 74 mL/min (>60)
[2024-07-23] MEDS: Acetaminophen 500 MG Tab PO ONE (18:12)
[2024-07-23] MEDS: Lidocaine 4% Patch TOP STA (18:13)
[2024-07-23 21:06] VITALS: BP 118/55; PULSE 62
== END 2024-07-23 21:06 | disposition home or self-care (01) ==
LOC: MW.ED 16:09
DX: F43.9 Reaction to severe stress, unspecified (principal); I10 Essential (primary) hypertension; E03.9 Hypothyroidism, unspecified; M19.90 Unspecified osteoarthritis, unspecified site; Z90.49 Acquired absence of other specified parts of digestive tract; Z79.82 Long term (current) use of aspirin; Z79.890 Hormone replacement therapy; Z79.899 Other long term (current) drug therapy; Z75.8 Other problems related to medical facilities and other health care
CPT/HCPCS: 36415; 71045; 80053; 81003; 83690; 83735; 84484; 85025; 87428; 93005; 99285; A9270; 93010; 99284